=== PATIENT | male | born 1995 | race Hispanic/Latino ===

== ENCOUNTER 2020-09-24 07:57 | Emergency (ER) | payer OTHER ==
[~2020-09-24] VITALS: Ht 175.3 cm; Wt 101.8 kg
[2020-09-24] MEDS ORDERED: TETRACAINE 0.5% OPHTH SOLN 4ML OU ONE (09:25)
[2020-09-24] MEDS ORDERED: FLUORESCEIN OPHTH 1 MG STRIP OU ONE (09:25)
[2020-09-24] MEDS ORDERED: GENT0.3O15 OD (09:46)
[2020-09-24 09:57] VITALS: BP 150/88
== END 2020-09-24 10:08 | disposition home or self-care (01) ==
LOC: M ED 07:57
DX: S05.01XA Injury of conjunctiva and corneal abrasion without foreign body, right eye, initial encounter (principal); X08.8XXA Exposure to other specified smoke, fire and flames, initial encounter; Y92.9 Unspecified place or not applicable; Y93.9 Activity, unspecified; Y99.9 Unspecified external cause status